=== PATIENT | female | born 1995 | race Caucasian/White ===

== ENCOUNTER 2016-09-05 15:01 | Emergency (ER) | payer OTHER ==
[2016-09-05 15:08] VITALS: RESP 16; TEMP 98.2; O2SAT 97
--- NOTE | 2016-09-05 16:03 | EDPHY ---
H & P Stated Complaint: ran into low hanging shelf at work/hit head/passed out Time Seen by Provider: 09/05/16 15:08 HPI/ROS: CHIEF COMPLAINT: head injury HISTORY OF PRESENT ILLNESS: 21-year-old female presents emergency department after she struck her head while at work on a shelving unit with positive brief loss of consciousness. Patient was walking around the corner and hit her head on a wooden shelf. Patient states this was witnessed, she denies neck pain. Patient reports a mild headache 4/10 and reports she was dizzy 2 hours ago when she was going up her stairs at home. Tetanus is up-to-date. Patient denies any nausea or vomiting, no confusion, no altered gait. She denies previous head injury. Patient has no other complaints. REVIEW OF SYSTEMS: A comprehensive 10 point review of systems is otherwise negative aside from elements mentioned in the history of present illness. Source: Patient Exam Limitations: No limitations - Personal History LMP (Females 10-55): 8-14 Days Ago Current Tetanus/Diphtheria Vaccine: Yes - Medical/Surgical History Hx Asthma: Yes Hx Chronic Respiratory Disease: No Hx Diabetes: No Hx Cardiac Disease: No Hx Renal Disease: No Hx Cirrhosis: No Hx Alcoholism: No Hx HIV/AIDS: No Hx Splenectomy or Spleen Trauma: No Other PMH: asthma - Social History Smoking Status: Current every day smoker - Physical Exam Exam: Physical Exam Gen: Alert and Oriented, NAD HEENT: PERRL, moist mucous membranes, no hemotympanum, no septal hematoma NECK: No C-spine tenderness to palpation CV: regular rate and regular rhythm Chest wall: Nontender PULM: CTAB, no wheezes ABDOMEN: soft, non tender to palpation, BS present BACK: No midline tenderness, no CVA tenderness NEURO: Neurologically grossly intact, normal [id number], rapid alternating movements, ghcm-[id number]. Normal gait, negative Romberg's EXTREMITIES: normal appearing SKIN: Superficial abrasion to left forehead at hairline PSYCH: answers questions appropriately. Constitutional: Initial Vital Signs Temperature (C) 36.8 C 09/05/16 15:04 Heart Rate 81 09/05/16 15:04 Respiratory Rate 16 09/05/16 15:04 Blood Pressure 110/84 H 09/05/16 15:04 O2 Sat (%) 97 09/05/16 15:04 O2 Delivery Mode Room Air Allergies/Adverse Reactions: codeine Allergy (Verified 09/05/16 15:04) Home Medications: Medication Instructions Recorded NK [No Known Home Meds] 09/05/16 Medical Decision Making ED Course/Re-evaluation: This patient presents after a head injury with a witnessed brief loss of consciousness. Mild 4/10 left sided headache over abrasion. No nausea or vomiting, no confusion, normal gait. Neurologic exam normal. No indication for neuro imaging. CHI precautions given. Pt given follow up with Dr. Corrales. Differential Diagnosis: The differential diagnosis for the patient's head injury included but was not limited to concussion, skull fracture, intra-parenchymal contusion, subarachnoid , subdural and epidural hematoma. Departure - Departure Disposition: Home, Routine, Self-Care Clinical Impression: Head injury Qualifiers: Encounter type: initial encounter Qualified Code(s): S09.90XA - Unspecified injury of head, initial encounter Concussion Qualifiers: Encounter type: initial encounter Loss of consciousness presence/duration: with LOC of 30 min or less Qualified Code(s): S06.0X1A - Concussion with loss of consciousness of 30 minutes or less, initial encounter Condition: Good Instructions: Concussion (ED), Head Injury (ED) Additional Instructions: Return to the emergency department immediately for any forceful vomiting, confusion, altered gait, any new symptoms or concerns. Follow up with Dr. Corrales who is a concussion specialist for any headaches, mild nausea, feeling foggy or any symptoms lasting more than 2 or 3 days. Take 650 mg of Tylenol every 8 hours as needed for your headache. Referrals: Ana Corrales MD [Medical Doctor] - As per Instructions (Concussion specialist. ) Stand Alone Forms: Work Comp Follow Up
[2016-09-05 16:29] VITALS: BP 85/68; PULSE 79
== END 2016-09-05 16:30 | disposition home or self-care (01) ==
DX: S06.0X1A Concussion with loss of consciousness of 30 minutes or less, initial encounter (principal); J45.909 Unspecified asthma, uncomplicated; F17.200 Nicotine dependence, unspecified, uncomplicated; W22.8XXA Striking against or struck by other objects, initial encounter; Y92.69 Other specified industrial and construction area as the place of occurrence of the external cause; Y99.0 Civilian activity done for income or pay; Y93.01 Activity, walking, marching and hiking

== ENCOUNTER 2017-06-30 09:53 | Emergency (ER) | payer OTHER ==
[2017-06-30 10:21] VITALS: O2SAT 97
--- NOTE | 2017-06-30 11:20 | EDPHY ---
H & P Stated Complaint: ?pulled muscle in lower thoracic area at work yesterday. Source: Patient Exam Limitations: No limitations - Personal History LMP (Females 10-55): Now Current Tetanus Diphtheria and Acellular Pertussis (TDAP): Yes - Medical/Surgical History Hx Asthma: No Hx Chronic Respiratory Disease: No Hx Diabetes: No Hx Cardiac Disease: No Hx Renal Disease: No Hx Cirrhosis: No Hx Alcoholism: No Hx HIV/AIDS: No Hx Splenectomy or Spleen Trauma: No Other PMH: asthma - Social History Smoking Status: Current every day smoker Time Seen by Provider: 06/30/17 11:19 HPI/ROS: HPI: This is a 22-year-old female who presents with Chief Complaint: ?pulled muscle in lower thoracic area at work yesterday. 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 She does not remember any heavy lifting/injury. Reports that she had a back injury and sciatica while working for [employer] several years ago but this feels different. She denies any radiation/paresthesias/incontinence/urinary symptoms. She took aspirin last night for the pain without relief. Currently on her menses. She is ambulatory without deficits. Friend drove her to the emergency room. Modifying Factors: Aspirin, no relief Comment: ROS: see HPI Constitutional: No fever, no chills, no weight loss Eyes: No blurred vision Respiratory: No shortness of breath, no cough Cardiovascular: No chest pain Gastrointestinal: No nausea, no vomiting no diarrhea Genitourinary: No dysuria Extremities: No myalgias Neurologic: No weakness, no numbness Skin: No rashes Hematologic: No bruising, no bleeding MEDICAL/SURGICAL/SOCIAL HISTORY: Medical history: Asthma Surgical history: Denies Social history: Employed. CONSTITUTIONAL: Well-appearing young adult white female, awake and alert, no obvious distress HEENT: Atraumatic and normocephalic. NECK: supple, no midline tenderness, flexion 45 degrees, extension 45 degrees, right and left lateral flexion 45 degrees. No meningismus. Cardiovascular: Normal S1/S2, regular rate, regular rhythm, without murmur rub or gallop. PULMONARY/CHEST: Symmetrical and nontender. no crepitus. Clear to auscultation bilaterally. Good air movement. No accessory muscle usage. ABDOMEN: Soft, nondistended, nontender, no ecchymosis. PELVIC: no pain with rocking; bilateral hips flexion 125 degrees, extension 30 degrees, with no pain internal rotation and no pain external rotation. BACK: No midline tenderness, bilateral lumbar reproducible paraspinous muscle tenderness and mild paraspinous spasm, deep tendon reflexes 2/2, no pain with straight leg raise, pain with flexion to 40, extension to 30, bilateral lateral rotation to 15. EXTREMITIES: 2/2 pulses, no deformities, no clubbing, no cyanosis or edema. NEUROLOGICAL: no focal neuro deficits. GCS 15. Light touch sensation intact. SKIN: Warm and dry, no erythema. no rash. Good capillary refill. (Argelia Rose) Constitutional: Initial Vital Signs Heart Rate 95 06/30/17 10:10 Respiratory Rate 16 06/30/17 10:10 Blood Pressure 121/100 H 06/30/17 10:10 O2 Sat (%) 97 06/30/17 10:10 O2 Delivery Mode Room Air Allergies/Adverse Reactions: codeine Allergy (Mild, Verified 06/30/17 10:16) rash,nausea/vom Home Medications: Medication Instructions Recorded Cyclobenzaprine [Flexeril 10 MG 10 mg PO TID PRN #12 tab 06/30/17 (*)] methylPREDNISolone [Medrol Dose 1 each PO AD #0 ea 06/30/17 David] Medical Decision Making ED Course/Re-evaluation: Lumbar sacral x-rays, oral and IM medications ordered Given p.o. Valium, IM Toradol, Lidoderm patch with adequate relief of pain No signs of neurovascular compromise/tenting of skin/compartment syndrome/ extremities and joints examined above and below area of concern and are neurovascularly intact/lumbar degenerative disc disease/sciatic. X-ray my read shows no acute fracture/degenerative changes Reassessed patient who reports moderate relief of pain. Ambulatory without assistance. Patient is very appreciative of care. Advised RICE therapy, gentle stretching exercises, limited work duty for the next several days This patient was seen under the supervision of my secondary supervising physician. I evaluated care for this patient independently. Discussed this patient with Dr. Shirley who did not see the patient. (Argelia Rose) The patient was evaluated and managed by the physician recruiting assistant. I have reviewed this chart and I agree with the findings and plan of care as documented , as indicated by my signature. I am the secondary supervising physician. ( Radha Shirley) Differential Diagnosis: Back pain including but not limited to muscular pain, herniated disc, spine fracture, intra-abdominal causes and urinary tract infection. (Argelia Rose) - Data Points Medications Given: Discontinued Medications Diazepam (Valium) 5 mg PO EDNOW ONE Stop: 06/30/17 11:31 Last Admin: 06/30/17 11:52 Dose: 5 mg Ketorolac Tromethamine (Toradol) 30 mg IM EDNOW ONE Stop: 06/30/17 11:31 Last Admin: 06/30/17 11:52 Dose: 30 mg Lidocaine (Lidoderm 5%) 1 ea TD EDNOW ONE Stop: 06/30/17 11:31 Last Admin: 06/30/17 11:51 Dose: 1 ea Miscellaneous Information (Patch Removal) 1 ea TD DAILY21 AMANDA Stop: 12/27/17 20:59 Last Admin: 06/30/17 11:54 Dose: Not Given Ondansetron HCl (Zofran Odt) 4 mg PO EDNOW ONE Stop: 06/30/17 11:35 Last Admin: 06/30/17 11:52 Dose: 4 mg Departure - Departure Disposition: Home, Routine, Self-Care Clinical Impression: Strain of lumbar paraspinal muscle Condition: Good Instructions: Low Back Strain (ED) Referrals: [facility],. [Clinic] - As per Instructions Stand Alone Forms: Work Excuse Prescriptions: Cyclobenzaprine [Flexeril 10 MG (*)] 10 mg PO TID PRN #12 tab PRN Reason: Spasms methylPREDNISolone [Medrol Dose David] 1 each PO AD #0 ea
[2017-06-30] MEDS ORDERED: LIDOCAINE 5% 1 EA PATCH TD ONE (11:30)
[2017-06-30] MEDS ORDERED: KETOROLAC 30 MG/1 ML SDV IM ONE (11:30)
[2017-06-30] MEDS ORDERED: DIAZEPAM 5 MG TAB PO ONE (11:30)
[2017-06-30] MEDS ORDERED: ONDANSETRON DISINTEGRATING 4 MG TAB PO ONE (11:34)
[2017-06-30 12:40] VITALS: BP 108/73; PULSE 73; RESP 18; TEMP 99
[2017-06-30] MEDS ORDERED: PATCH REMOVAL 1 EA PATCH TD SCH (21:00)
== END 2017-06-30 13:05 | disposition home or self-care (01) ==
DX: S39.012A Strain of muscle, fascia and tendon of lower back, initial encounter (principal); J45.909 Unspecified asthma, uncomplicated; F17.200 Nicotine dependence, unspecified, uncomplicated; X58.XXXA Exposure to other specified factors, initial encounter; Y92.69 Other specified industrial and construction area as the place of occurrence of the external cause; Y99.0 Civilian activity done for income or pay; Y93.89 Activity, other specified
CPT/HCPCS: J1885

== ENCOUNTER 2017-07-09 10:02 | Emergency (ER) | payer OTHER ==
[2017-07-09 10:07] VITALS: RESP 16
--- NOTE | 2017-07-09 10:40 | EDPHY ---
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 She was treated with Flexeril and Medrol Dosepak at that time. States that the Flexeril has assisted and alleviate her pain however does not like the feeling groggy sensation. She continues with intermittent low back pain worse after work with intermittent bilateral buttock pain, currently with no radicular symptoms. No incontinence no retention no saddle anesthesia. 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 FAMILY HISTORY: No pertinent family history PHYSICAL EXAM (Prior to examination, patient consented to physical exam, hands were washed and my usual and customary physical exam procedures followed) 1) GENERAL: Well-developed, well-nourished, alert and oriented. Appears to be in no acute distress. 2) HEAD: Normocephalic, atraumatic 3) HEENT: Pupils equal, round, reactive to light bilaterally. Sclera anicteric. Nasopharynx, oropharynx, clear, no lesions. 4) NECK: Full range of motion, no meningeal signs. 5) LUNGS: Clear auscultation bilaterally, no wheezes, no rhonchi, no retractions. 6) HEART: Regular rate and rhythm, no murmur, no heave, no gallop. 7) ABDOMEN: No guarding, no rebound, no focal tenderness, negative McBurney's, negative Springer's, negative Rovsing's, negative peritoneal sign, 8) MUSCULOSKELETAL: Moving all extremities, no focal areas of tenderness, no obvious trauma. No peripheral edema or discoloration. 9) BACK: tender to palpation bilateral paraspinous lumbar muscles with spasms noted. No CVA tenderness, no midline vertebral tenderness, no fluctuance, no step-off, no obvious trauma, no visual or palpable abnormality. Patella, Achilles reflexes intact to bilateral strength 5/5. Positive straight leg lift test bilaterally 10) SKIN: No rash, no petechiae. 11) NEURO: Awake, alert, and oriented to person, place and time. Answers questions appropriately. There were no obvious focal neurologic abnormalities. No cerebellar dysfunction. Normal steady gait. Upper and lower extremities bilaterally with strength 5 / 5, reflexes 2+.. DIFFERENTIAL DIAGNOSIS: In no particular order, including but not limited to, fracture, sprain/strain, cauda equina, spinal infectious etiology. MEDICAL DECISION MAKING Lower index of suspicion for cauda equina, epidural abscess, epidural hematoma, lumbar myositis, diskitis, as the patient is neurologically intact in the lower extremities, has patella and Achilles reflexes intact and equal bilaterally, has no neurologic deficits, no incontinence, no retention, no midline pain, no fluctuance, afebrile, no flulike symptoms. Pain may be secondary to muscular strain, may be secondary to discogenic etiology. At this point I do not identify definitive indication for emergent MRI, however patient may necessitate this on an outpatient basis. Patient given acute back pain precautions. Patient verbalizes understanding of discharge instructions. I believe them be competent decision-makers. All questions and concerns have been addressed by me. Ample opportunity for questions have been provided . The patient understands that this diagnosis is provisional and can never be 100 % accurate. Usual and customary warnings were given concerning the clinical impression and all the patient's questions were answered. The patient was instructed to return to the emergency department should her symptoms worsen or return, or develop any new symptoms, otherwise to followup as directed in discharge instructions. Care of patient under supervision of primary secondary supervising physician who independently evaluated patient. - Personal History LMP (Females 10-55): 15-21 Days Ago Current Tetanus Diphtheria and Acellular Pertussis (TDAP): Yes - Medical/Surgical History Hx Asthma: No Hx Chronic Respiratory Disease: No Hx Diabetes: No Hx Cardiac Disease: No Hx Renal Disease: No Hx Cirrhosis: No Hx Alcoholism: No Hx HIV/AIDS: No Hx Splenectomy or Spleen Trauma: No Other PMH: asthma - Social History Smoking Status: Current every day smoker Constitutional: Initial Vital Signs Temperature (C) 36.7 C 07/09/17 10:04 Heart Rate 94 07/09/17 10:04 Respiratory Rate 16 07/09/17 10:04 Blood Pressure 115/70 07/09/17 10:04 O2 Sat (%) 97 07/09/17 10:04 O2 Delivery Mode Room Air Allergies/Adverse Reactions: codeine Allergy (Mild, Verified 07/09/17 10:03) rash,nausea/vom Home Medications: Medication Instructions Recorded Cyclobenzaprine [Flexeril 10 MG 10 mg PO TID #15 tab 07/09/17 (RX)] Lidocaine 5% [Lidoderm 5% Patch 1 ea TD BID #30 patch 07/09/17 (*)] Departure - Departure Disposition: Home, Routine, Self-Care Clinical Impression: Acute low back pain Condition: Good Instructions: Low Back Strain (ED) Additional Instructions: Seek medical attention if you develop new or worsening pain, if you develop bladder or bowel dysfunction, numbness around your perineum, foot drop, or any other symptoms that concern you. Referrals: Follow-up, with your work comp provider in 2-3 days [Other] - As per Instructions Stand Alone Forms: Work Limited Duty, Work Comp Follow Up Prescriptions: Cyclobenzaprine [Flexeril 10 MG (RX)] 10 mg PO TID #15 tab Lidocaine 5% [Lidoderm 5% Patch (*)] 1 ea TD BID #30 patch
[2017-07-09 11:01] VITALS: BP 120/62; PULSE 67; TEMP 98.8; O2SAT 98
== END 2017-07-09 11:02 | disposition home or self-care (01) ==
DX: M54.5 Low back pain (principal); J45.909 Unspecified asthma, uncomplicated; F17.200 Nicotine dependence, unspecified, uncomplicated

== ENCOUNTER 2018-04-13 17:04 | Emergency (ER) | payer OTHER, MEDICAID ==
--- NOTE | 2018-04-13 17:38 | EDPHY ---
General - History Smoking Status: Current every day smoker Time Seen by Provider: 04/13/18 17:31 Narrative: CHIEF COMPLAINT: "I set something on the counter," neck and back pain HISTORY OF PRESENT ILLNESS: Patient presents by private vehicle with her friend with complaints of back and neck pain. Injury occurred approximately 1 hr ago. She states that she was at work when she "set something on the counter," and then she describes feeling a severe, "15/10"pain in her neck and upper thoracic spine. She denies any fall, blunt trauma or injury otherwise. She states she was placed in a heavy object on the counter when this happened. She does have a history of back pain with previous injury that has resolved. She had some left radiating pain to her arm only at the time that has resolved. No numbness or tingling. No weakness. No incontinence of bowel or bladder. No chest or abdominal pain. No injury elsewhere. No other associated complaints or modifying factors ESTABLISHED ORTHOPEDIST: None REVIEW OF SYSTEMS: Ten systems reviewed and are negative unless otherwise noted in the HPI PAST MEDICAL HISTORY: Back pain, asthma PAST SURGICAL HISTORY: No surgical history SOCIAL HISTORY: Daily smoker. Occasional alcohol marijuana use. Works locally. FAMILY HISTORY: Noncontributory EXAMINATION: General Appearance: Alert, no distress HEENT: Normocephalic and atraumatic. Pupils equal round reactive Neck: Cervical collar in place. There is mild midline tenderness to the cervical spine without crepitus, step-off or deformity. Range of motion not tested. Midline stabilization held during exam. Soft tissue tenderness of bilateral trapezius muscles. Cardiovascular: Pulses normal throughout. Brisk cap refill Neurological: A&O, sensory symmetric, strength symmetric. Ambulatory without difficulty. Back: There is mild tenderness to the upper thoracic spine midline. No crepitus, step-off or deformity. There is also soft tissue tenderness of the paraspinous musculature in the thorax. Skin: Warm and dry, no rash. No puncture laceration. Multiple tattoos. Extremities: Nontender, no pedal edema Psychiatric: Mood and affect normal DIFFERENTIAL DIAGNOSES: Including but not limited to sprain, strain, fracture, subluxation, dislocation , spondylolisthesis, disc bulge, disc herniation, disc rupture MDM: 5:40 p.m. Acute lower cervical and upper thoracic pain after placing an object on the counter with suspected muscular strain, ligamentous sprain or disc bulge versus herniation. She did report left upper extremity radiculopathy that is resolved. She has no evidence of acute cord compression. She is very tearful but in no acute distress. I have ordered muscle relaxant and urine test. Plan for Toradol and steroid therapy. Given her mechanism is highly unlikely that she has suffered a fracture, but there may be significant disc bulge or subluxation, thus I will order imaging of the cervical and thoracic spine. She was placed in a cervical collar here in this emergency department. She does have mild midline tenderness, thus I did not remove the collar during my exam. 5:50 p.m. Patient has ambulated to the restroom to provide urine sample without any difficulty. 6:20 p.m. Urine HCG test is negative emergency department. I have ordered Toradol and Decadron. She has received Valium. 7:20 p.m. Patient re-evaluated. Her x-rays of the thoracic and cervical spine are negative for any injury. She is feeling significantly better after the medications. She is ambulatory. She is neuro intact. We discussed the possibility of strain versus sprain or less likely disc bulge or herniation. We discussed follow up with her work comp clinic. We discussed follow up with primary care physician as provided. We discussed ED precautions for any worsening pain, numbness, tingling, weakness. She is happy with this plan. I have answered all her questions. Discharge home with symptomatic medications in stable condition. SUPERVISION: Patient was independently examined, but I discussed the case with my secondary supervising physician Dr. Trejo ([facility]) Discussion: The patient was evaluated and managed by the Physician Leather Patcher. I discussed the patient's presentation and course with the midlevel provider with them and agree with the evaluation. My co-signature indicates that I have reviewed this chart and I agree with the findings and plan of care as documented. I am the secondary supervising physician. (Karyn Trejo) - Objective Vital Signs: Initial Vital Signs Temperature (C) 36.5 C 04/13/18 17:13 Heart Rate 96 04/13/18 17:13 Respiratory Rate 16 04/13/18 17:13 Blood Pressure 107/81 H 04/13/18 17:13 O2 Sat (%) 99 04/13/18 17:13 O2 Delivery Mode Room Air Allergies/Adverse Reactions: codeine Allergy (Mild, Verified 07/09/17 10:03) rash,nausea/vom oxycodone Allergy (Verified 11/24/17 22:42) Home Medications: Medication Instructions Recorded Cyclobenzaprine [Cyclobenzaprine 5 mg PO TID PRN #12 tab 04/13/18 HCl] methylPREDNISolone [Medrol Dose 1 each PO AD #1 ea 04/13/18 David] Medications Given: Discontinued Medications Dexamethasone (Decadron) 8 mg PO EDNOW ONE Stop: 04/13/18 18:28 Last Admin: 04/13/18 18:33 Dose: 8 mg Diazepam (Valium) 5 mg IM EDNOW ONE Stop: 04/13/18 17:46 Last Admin: 04/13/18 17:52 Dose: 5 mg Ketorolac Tromethamine (Toradol) 60 mg IM EDNOW ONE Stop: 04/13/18 18:28 Last Admin: 04/13/18 18:32 Dose: 60 mg Point of Care Test Results: Urine HCG Results Negative Departure - Departure Disposition: Home, Routine, Self-Care Clinical Impression: Acute cervical myofascial strain, Acute thoracic myofascial strain Condition: Good Instructions: Cervical Strain (ED), Thoracic Back Strain (ED) Additional Instructions: 1. Medications as prescribed as needed for symptom control 2. Xhyi-tlo-kclvbfo anti-inflammatories, ibuprofen 600 mg every 8 hr as needed for pain 3. Contact your worker's compensation Clinic for further care 4. ED precautions for worsening pain, numbness, tingling, weakness, incontinence of bowel or bladder Referrals: Dino Whipple MD [[facility] Primary Care Provider] - As per Instructions Andrew Sahni MD [Medical Doctor] - As per Instructions Stand Alone Forms: Work Comp Follow Up, Work Excuse Prescriptions: Cyclobenzaprine [Cyclobenzaprine HCl] 5 mg PO TID PRN #12 tab PRN Reason: back spasm or pain methylPREDNISolone [Medrol Dose David] 1 each PO AD #1 ea
[2018-04-13] MEDS ORDERED: DIAZEPAM 5 MG/ML 1 ML SYR IM ONE (17:45)
[2018-04-13] MEDS ORDERED: DEXAMETHASONE 4 MG TAB PO ONE (18:27)
[2018-04-13] MEDS ORDERED: KETOROLAC 30 MG/1 ML SDV IM ONE (18:27)
[2018-04-13 19:16] VITALS: BP 118/70
== END 2018-04-13 19:35 | disposition home or self-care (01) ==
DX: S16.1XXA Strain of muscle, fascia and tendon at neck level, initial encounter (principal); S39.012A Strain of muscle, fascia and tendon of lower back, initial encounter; X50.9XXA Other and unspecified overexertion or strenuous movements or postures, initial encounter; Y99.0 Civilian activity done for income or pay; Y92.9 Unspecified place or not applicable; Y93.9 Activity, unspecified
CPT/HCPCS: J1885; J3360